=== PATIENT | male | born 1970 | race Caucasian/White ===

== ENCOUNTER 2018-06-10 04:51 | Emergency (ER) | payer SELFPAY ==
--- NOTE | 2018-06-10 07:08 | ER Document Report ---
HPI - HPI Patient complains to provider of: back pain radiates to right thigh Onset: Other - few days Quality of pain: Achy Pain Level: 5 Context: 48 yo obese male with hx. chronic intermittent right low back pain that radiates into right thigh for years. Worse this weekend after twisting. Worse with movement. No IV durg use, no fever, no hx cancer, no saddle anesthesia. Under care of chiropractor which helps. Associated Symptoms: None Exacerbated by: Movement Relieved by: Denies - ROS ROS below otherwise negative: Yes Systems Reviewed and Negative: Yes All other systems reviewed and negative - MUSCULOSKELETAL Musculoskeletal: REPORTS: Extremity pain - RLE Past Medical History - General Information source: Patient - Social History Smoking Status: Never Smoker Frequency of alcohol use: Occasional Drug Abuse: None Lives with: Family Family History: Reviewed & Not Pertinent Patient has suicidal ideation: No Patient has homicidal ideation: No - Past Medical History Cardiac Medical History: Reports: Hx Hypertension Renal/ Medical History: Denies: Hx Peritoneal Dialysis Past Surgical History: Reports: Hx Orthopedic Surgery - R knee Vertical Provider Document - CONSTITUTIONAL Agree With Documented VS: Yes Exam Limitations: No Limitations General Appearance: No Apparent Distress - INFECTION CONTROL TRAVEL OUTSIDE OF THE [place] IN LAST 30 DAYS: No - NECK Neck: Supple - BACK Back: Normal Inspection - tender right sacroiliac joint area - MUSCULOSKELETAL/EXTREMETIES Musculoskeletal/Extremeties: MAEW, FROM, Tender - see above - NEURO Level of Consciousness: Awake Motor/Sensory: No Motor Deficit, No Sensory Deficit Deep Tendon Reflexes: 2+ - roberta ankle and patellar - DERM Integumentary: No Rash Course - Vital Signs Vital signs: Temp Pulse Resp BP Pulse Ox 97.8 F 91 16 169/85 H 97 06/10/18 04:57 06/10/18 04:57 06/10/18 04:57 06/10/18 04:57 06/10/18 04:57 Discharge - Discharge Clinical Impression: Chronic right sacroiliac joint pain Right low back pain Qualifiers: Chronicity: chronic Sciatica presence: with sciatica Sciatica laterality: sciatica of right side Qualified Code(s): M54.41 - Lumbago with sciatica, right side Condition: Good Disposition: HOME, SELF-CARE Instructions: Acetaminophen, Ibuprofen (General) ([facility]), Low Back Pain ([facility]), Muscle Relaxers ([facility]), Ultram ([facility]), Warm Packs ([facility]) Additional Instructions: warm Tylenol up to 4000 mg a day for pain Motrin 800 mg 3 times a day Flexeril 10 mg 3 times a day as needed for muscle spasms Ultram 1 every 4 hours as needed for pain See her chiropractor this afternoon as planned Prescriptions: Ibuprofen [Motrin 800 mg Tablet] 800 mg PO Q8HP PRN #30 tablet PRN Reason: Cyclobenzaprine HCl [Flexeril 10 Mg Tablet] 10 mg PO TIDP PRN #20 tablet PRN Reason: Tramadol HCl [Ultram 50 mg Tablet] 50 mg PO ASDIR PRN #15 tablet PRN Reason: Forms: Return to Work
[2018-06-10 08:42] VITALS: BP 157/97
== END 2018-06-10 08:43 | disposition home or self-care (01) ==
LOC: ER 04:51
DX: M54.41 Lumbago with sciatica, right side (principal); M53.3 Sacrococcygeal disorders, not elsewhere classified
CPT/HCPCS: 99283

== ENCOUNTER 2019-07-25 11:16 | Emergency (ER) | payer SELFPAY ==
[2019-07-25] MEDS ORDERED: KETOROLAC TROMETHAMINE 60 MG/2 ML SDV IM ONE (12:16)
--- NOTE | 2019-07-25 12:20 | ER Document Report ---
HPI - HPI Patient complains to provider of: back pain Time Seen by Provider: 07/25/19 12:11 Onset: Other Onset/Duration: Sudden, Persistent Quality of pain: Achy Severity: Severe Pain Level: 5 Context: This 49-year-old morbidly obese male presents emergency department with low left-sided back pain. Reports he was sitting at his computer desk when he bent over to grab a ferret and twisted his back. Denies urinary bowel incontinence or retention. Denies paresthesia. Denies trauma. Denies fever vomiting diarrhea. Has been taking ibuprofen without relief of symptoms. Denies history of IV drug use or steroids. - CONSTITUTIONAL Constitutional: DENIES: Fever, Chills Past Medical History - Social History Smoking Status: Never Smoker Chew tobacco use (# tins/day): No Frequency of alcohol use: Occasional Drug Abuse: None Family History: Reviewed & Not Pertinent Patient has suicidal ideation: No Patient has homicidal ideation: No - Past Medical History Cardiac Medical History: Reports: Hx Hypertension Renal/ Medical History: Denies: Hx Peritoneal Dialysis Past Surgical History: Reports: Hx Orthopedic Surgery - R knee Vertical Provider Document - CONSTITUTIONAL Agree With Documented VS: Yes Exam Limitations: No Limitations General Appearance: WD/WN, No Apparent Distress - INFECTION CONTROL TRAVEL OUTSIDE OF THE [place] IN LAST 30 DAYS: No - HEENT HEENT: Atraumatic, Normocephalic - NECK Neck: Normal Inspection, Supple. negative: Lymphadenopathy-Right - RESPIRATORY Respiratory: Breath Sounds Normal, No Respiratory Distress - CARDIOVASCULAR Cardiovascular: Regular Rate - GI/ABDOMEN Gastrointestinal: Abdomen Soft, Abdomen Non-Tender - BACK Back: Normal Inspection - Complains of low left sided back pain denies vertebral tenderness good distal movement and sensation no weakness is good reflexes. negative: CVA Tenderness-Right, CVA Tenderness-Left - MUSCULOSKELETAL/EXTREMETIES Musculoskeletal/Extremeties: MAEW, FROM, Non-Tender - NEURO Level of Consciousness: Awake, Alert, Appropriate Motor/Sensory: No Motor Deficit - DERM Integumentary: Warm, Dry Adult Front & Back Diagram: 1 - Complains of low left-sided back pain no vertebral tenderness Course - Re-evaluation Re-evalutation: 07/25/19 12:25 49-year-old morbidly obese male presents with low left-sided back pain with no trauma. Reports he does have a history of this back pain in the past. Denies urinary bowel incontinence or retention. Denies paresthesia. Denies history of IV drug use denies steroid use. Patient has full range of motion no weakness good reflexes. He will be treated with injection of Toradol prescription for muscle relaxer and instructed to take ibuprofen for the pain. He was also instructed on ice packs. He was instructed to follow-up with the primary care provider for recheck within 1 week. He verbalized understanding to all instructions. Low suspicion for any meningitis, fracture, expanding/ruptured AAA, cauda equina syndrome, epidural mass lesion/abscess, herniated disc causing severe spinal stenosis, or other systemic infection at this time. Patient is aware that this condition can change from initial presentation and that she needs monitor symptoms closely for any acute changes. Dictation of this chart was performed using voice recognition software; therefore, there may be some unintended grammatical errors. - Vital Signs Vital signs: Temp Pulse Resp BP Pulse Ox 98.3 F 83 18 189/88 H 97 07/25/19 11:23 07/25/19 11:23 07/25/19 11:23 07/25/19 11:23 07/25/19 11:23 Discharge - Discharge Clinical Impression: low left sided back pain Condition: Stable Disposition: HOME, SELF-CARE Instructions: Ice Packs ([facility]), Low Back Pain ([facility]), Muscle Relaxers ([facility]), Toradol Injection ([facility]) Additional Instructions: *You have been evaluated for low back pain *Take medication as prescribed, take ibuprofen as indicated *Rest/Ice packs as discussed *Follow up with a primary care provider within one week for recheck *Return to ED for worsening condition, changes, needs Monitor your blood pressure. Your blood pressure was elevated today. This may be because you were anxious, in pain or because you need medication. It is important to follow up with your primary care provider for full evaluation. Prescriptions: Cyclobenzaprine HCl [Flexeril 10 Mg Tablet] 10 mg PO TID #15 tablet Forms: Elevated Blood Pressure
[2019-07-25 12:46] VITALS: BP 169/87
== END 2019-07-25 12:47 | disposition home or self-care (01) ==
LOC: ER 11:16
DX: M54.9 Dorsalgia, unspecified (principal); X50.1XXA Overexertion from prolonged static or awkward postures, initial encounter; I10 Essential (primary) hypertension
CPT/HCPCS: 99283; 96372; J1885

== ENCOUNTER 2019-08-01 22:48 | Emergency (ER) | payer SELFPAY ==
[2019-08-01] MEDS ORDERED: TRAMADOL HCL 50 MG TABLET PO ONE (23:19)
--- NOTE | 2019-08-01 23:23 | ER Document Report ---
ED General - General Chief Complaint: Knee Injury Stated Complaint: KNEE INJURY Time Seen by Provider: 08/01/19 23:13 TRAVEL OUTSIDE OF THE [place] IN LAST 30 DAYS: No - HPI Notes: 49-year-old male presents with knee pain. Patient that she stepped off a step today and felt immediate pain in his left medial knee. Some waxing waning pain but nothing severe until now. Did not twist it, no direct injury. Difficulty bearing weight secondary to pain. Sudden onset, nonradiating. No other modifying factors, no other associated symptoms, no other provocative or palliative factors. No prior surgeries or interventions on this knee. - Related Data Allergies/Adverse Reactions: No Known Allergies Allergy (Verified 08/01/19 23:13) Past Medical History - Social History Smoking Status: Never Smoker Frequency of alcohol use: Occasional Drug Abuse: None Family History: Reviewed & Not Pertinent Patient has suicidal ideation: No Patient has homicidal ideation: No - Past Medical History Cardiac Medical History: Reports: Hx Hypertension Renal/ Medical History: Denies: Hx Peritoneal Dialysis Past Surgical History: Reports: Hx Orthopedic Surgery - R knee; rigth elbow Review of Systems - Review of Systems Notes: Review of systems as in history of present illness, otherwise no significant headache, chest pain, abdominal pain. Physical Exam - Vital signs Vitals: Temp Pulse Resp BP Pulse Ox 98.0 F 88 20 189/80 H 97 08/01/19 22:59 08/01/19 22:59 08/01/19 22:59 08/01/19 22:59 08/01/19 22:59 - Notes Notes: General: Well devloped, no acute distress. HEENT: Normocephalic, atraumatic. Pupils equal round reactive to light. Mucosa moist. No JVD. Chest: No trauma, normal excursion. Respiratory: Good air exchange, normal excursion. Cardiac: Regular rhythm Abdomen: Soft, benign. Nondistended. Back: No asymmetry or gross abnormality. Motor: Grossly normal power and tone. Neurologic: Alert, nonfocal. Vascular: Well perfused Skin: No petechiae or purpura Extremities: Left medial knee has mild tenderness, no ligamentous laxity, no anterior posterior drawer sign. Normal neurovascular exam. Course - Re-evaluation Re-evalutation: 08/01/19 23:22 Well-appearing male likely internal derangement of the knee, no high risk features to suggest instability. Plan proceed with x-ray to rule out bony abnormality, analgesics, reassess. 08/01/19 23:47 Plain films show no acute abnormality, patient is discharged home with a prescription for analgesics, outpatient follow-up. - Vital Signs Vital signs: Temp Pulse Resp BP Pulse Ox 98.0 F 88 20 189/80 H 97 08/01/19 22:59 08/01/19 22:59 08/01/19 22:59 08/01/19 22:59 08/01/19 22:59 Discharge - Discharge Clinical Impression: Internal derangement of knee Qualifiers: Laterality: left Qualified Code(s): M23.92 - Unspecified internal derangement of left knee Condition: Stable Disposition: HOME, SELF-CARE Instructions: Suspected Internal Knee Injury ([facility]) Additional Instructions: Follow-up with your primary care doctor over the next several days Prescriptions: Tramadol HCl [Ultram 50 mg Tablet] 50 mg PO Q6 PRN #12 tablet PRN Reason:
--- NOTE | 2019-08-02 00:02 | RADIOLOGY REPORT (SQ) ---
EXAM DESCRIPTION: Left knee RadLex: XR KNEE 3 VIEWS Views: 3 CLINICAL HISTORY: 49 years Male, medial knee pain COMPARISON: None. FINDINGS: Negative for acute fracture, dislocation, or radiopaque foreign body. No patellar subluxation. No joint effusion. IMPRESSION: 1. No acute findings.
[2019-08-02 00:08] VITALS: BP 169/90
== END 2019-08-02 00:08 | disposition home or self-care (01) ==
LOC: ER 22:48
DX: M23.92 Unspecified internal derangement of left knee (principal); W10.8XXA Fall (on) (from) other stairs and steps, initial encounter; I10 Essential (primary) hypertension
CPT/HCPCS: 99283

== ENCOUNTER 2020-05-11 17:44 | Emergency (ER) | payer SELFPAY ==
[2020-05-11 17:53] VITALS: BP 178/88
--- NOTE | 2020-05-11 18:49 | ER Document Report ---
ED General - General Stated Complaint: MEDICAL CLEARANCE Notes: Patient is a 49-year-old white male with a past medical history of obesity who presents to the emergency department the chief complaint of an isolated episode of upset stomach and diarrhea this morning. Patient reports he had some greasy food at [employer] last night. States when he woke this morning he had one bout of loose stool and upset stomach. Called his job who advised he not coming to work. Patient states that he took the day to rest and relax. He has had no further episodes of diarrhea or abdominal pain. No vomiting, chills, night sweats or fever. No recent travel or known sick contacts. No known exposures to COVID-19. TRAVEL OUTSIDE OF THE [place] IN LAST 30 DAYS: No - Related Data Allergies/Adverse Reactions: No Known Allergies Allergy (Verified 08/01/19 23:13) Past Medical History - Social History Smoking Status: Unknown if Ever Smoked Family History: Reviewed & Not Pertinent - Past Medical History Cardiac Medical History: Reports: Hx Hypertension Renal/ Medical History: Denies: Hx Peritoneal Dialysis Past Surgical History: Reports: Hx Orthopedic Surgery - R knee; rigth elbow Review of Systems - Review of Systems Constitutional: denies: Fever EENT: denies: Throat pain Cardiovascular: denies: Chest pain Respiratory: denies: Short of breath Gastrointestinal: Diarrhea. denies: Abdominal pain, Nausea, Vomiting Genitourinary: denies: Pain Male Genitourinary: No symptoms reported Musculoskeletal: denies: Back pain Skin: denies: Change in color Hematologic/Lymphatic: denies: Easy bruising Neurological/Psychological: denies: Headaches Physical Exam - Vital signs Vitals: Temp Pulse Resp BP Pulse Ox 99.0 F 85 17 178/88 H 99 05/11/20 17:50 05/11/20 17:50 05/11/20 17:50 05/11/20 17:50 05/11/20 17:50 - General General appearance: Appears well, Alert In distress: None - HEENT Mucous membranes: Moist - Respiratory Respiratory status: No respiratory distress Chest status: Nontender Breath sounds: Normal Chest palpation: Normal - Cardiovascular Rhythm: Regular Heart sounds: Normal auscultation - Abdominal Inspection: Normal Distension: No distension Bowel sounds: Normal Tenderness: Nontender Organomegaly: No organomegaly - Back Back: No: CVA tenderness - Neurological Neuro grossly intact: Yes Cognition: Normal Orientation: AAOx4 - Psychological Associated symptoms: Normal affect, Normal mood - Skin Skin Temperature: Warm Skin Moisture: Dry Skin Color: Normal, Other - Normal turgor Course - Re-evaluation Re-evalutation: 05/11/20 18:49 Patient with a normal exam. Transient episode of diarrhea and upset stomach. No further signs or symptoms of illness. He is low risk for COVID-19 exposure. He is stable and appropriate for discharge and outpatient follow-up. He will return to work tomorrow wearing a mask. Counseled him regarding the importance of outpatient follow-up and advised that he return here or any ER immediately with any new, persistent or worsening symptoms. He verbalized understood and agreed. - Vital Signs Vital signs: Temp Pulse Resp BP Pulse Ox 99.0 F 85 17 178/88 H 99 05/11/20 17:50 05/11/20 17:50 05/11/20 17:50 05/11/20 17:50 05/11/20 17:50 Discharge - Discharge Clinical Impression: Diarrhea Qualifiers: Diarrhea type: unspecified type Qualified Code(s): R19.7 - Diarrhea, unspecified Condition: Stable Disposition: HOME, SELF-CARE Instructions: Diarrhea, Nonspecific ([facility]) Additional Instructions: Follow-up with your regular doctor in 2 to 3 days for reevaluation. Return here or any ER immediately with any new, persistent or worsening symptoms. Forms: Return to Work
== END 2020-05-11 18:53 | disposition home or self-care (01) ==
LOC: ER 17:44
DX: R19.7 Diarrhea, unspecified (principal); R10.84 Generalized abdominal pain; I10 Essential (primary) hypertension
CPT/HCPCS: 99283